=== PATIENT | female | born 1930 | race Caucasian/White ===

== ENCOUNTER → 2016-11-21 | Outpatient (CLI) | payer MEDICARE, OTHER ==
[2014-03-19 11:06] VITALS: BP 156/72
[~2016-11-21] MED LIST: ACET325T21 PO; ALPR0.254 PO; AMOX500T PO; ANTI14DR4 AS; BISA10SU2 RC; BISO5TAB2 PO; CELEXA PO; CYCL-331 PO; DOCU-109 PO; DONE10TA61 PO; HYDR-2762 PO; IBUP400T18 PO; LISI10TA2 PO; MAALOX PO; MAGN2400 PO; MEMA10TA PO; METH-37 PO; PREG50CA PO; PROM25VI5 IM; RIVA1.5C2 PO; RIVA3CAP2 PO; TYLENOL ARTHRITIS PO
--- NOTE | 2016-11-21 15:55 | RAD ---
CT head Indication: Headache for one week Technique: CT head without IV contrast Comparison: Previous CT head from 03/15/2014 Findings: Mild diffuse brain atrophy. No pathologic extra-axial or intra-axial fluid collection. No focal loss of cristina-white differentiation. No mass effect. The ventricles and basilar cisterns are within normal limits. No acute intracranial bleed. Visualized orbits within normal limits. No calvarial lesions. The visualized paranasal sinuses and mastoid air cells are clear. Bilateral periventricular and deep white matter low attenuation noted. Impression: 1. No acute intracranial process on this noncontrast study. 2. White matter changes secondary to chronic microvascular ischemic disease. PQRS Compliance Statement: One or more of the following individualized dose reduction techniques were utilized for this examination: 1. Automated exposure control 2. Adjustment of the mA and/or kV according to patient size 3. Use of iterative reconstruction technique
== END | disposition home or self-care (01) ==
LOC: CT 13:09
PROVIDERS: ATTEND Internal Medicine
DX: G31.89 Other specified degenerative diseases of nervous system (principal); R51 Headache
CPT/HCPCS: 70450

== ENCOUNTER → 2017-03-28 | Outpatient (CLI) | payer MEDICARE, OTHER ==
[2014-03-19 11:06] VITALS: BP 156/72
--- NOTE | 2017-03-28 14:00 | RAD ---
Lumbar spine, 5 views, 03/28/2017: History: Low back pain Comparison is made to a study from 03/28/2009. There is a mild lumbar scoliosis. The lumbar vertebral heights are well-maintained. There is a moderate grade 2 spondylolisthesis which as worsened since the previous study. A minimal grade 1 spondylolisthesis has developed at L4-5. There is mild disc space narrowing at L5-S1. There are mild scattered marginal spurs. Extensive facet joint arthropathy is noted in the lower lumbar spine. There is a moderate vertebral compression deformity at T11 with associated vertebroplasty change. This was not present on the 2009 exam. IMPRESSION: 1. Extensive facet joint arthropathy in the lower lumbar spine with a worsening grade 2 spondylolisthesis at L5-S1 and a mild grade 1 spondylolisthesis at L4-5. 2. Old T11 vertebral compression fracture with vertebroplasty change.
== END | disposition home or self-care (01) ==
LOC: DXRAD 13:26
PROVIDERS: ATTEND Internal Medicine
DX: M43.16 Spondylolisthesis, lumbar region (principal); I11.0 Hypertensive heart disease with heart failure; I50.22 Chronic systolic (congestive) heart failure
CPT/HCPCS: 72110

== ENCOUNTER → 2017-04-21 | Outpatient (CLI) | payer MEDICARE, OTHER ==
[2014-03-19 11:06] VITALS: BP 156/72
[~2017-04-21] MED LIST changes: +BUPIVACAINE MPF 0.5% 30 ML VIAL. ONE
== END | disposition home or self-care (01) ==
LOC: SURG 08:49
PROVIDERS: ATTEND Anesthesiology Pain Medicine
DX: M79.1 Myalgia (principal); M19.90 Unspecified osteoarthritis, unspecified site; F41.8 Other specified anxiety disorders; Z96.651 Presence of right artificial knee joint; Z98.49 Cataract extraction status, unspecified eye; K21.9 Gastro-esophageal reflux disease without esophagitis; I11.0 Hypertensive heart disease with heart failure; I50.9 Heart failure, unspecified
CPT/HCPCS: 20553; 99205; J3490

== ENCOUNTER → 2017-05-16 | Outpatient (CLI) | payer MEDICARE, OTHER ==
[2014-03-19 11:06] VITALS: BP 156/72
[~2017-05-16] MED LIST changes: -BUPIVACAINE MPF 0.5% 30 ML VIAL. ONE
== END | disposition home or self-care (01) ==
LOC: SURG 14:00
PROVIDERS: ATTEND Anesthesiology
DX: M54.6 Pain in thoracic spine (principal); I10 Essential (primary) hypertension; K21.9 Gastro-esophageal reflux disease without esophagitis
CPT/HCPCS: 99214

== ENCOUNTER → 2017-08-08 | Outpatient (CLI) | payer MEDICARE, OTHER ==
[2014-03-19 11:06] VITALS: BP 156/72
[~2017-08-08] MED LIST changes: +BUPIVACAINE MPF 0.25% 10 ML VIAL. ONE; +methylPREDNISolone ACETATE 40 MG/ML VIAL. ONE
== END | disposition home or self-care (01) ==
LOC: SURG 13:07
PROVIDERS: ATTEND Anesthesiology
DX: M79.1 Myalgia (principal); Z87.39 Personal history of other diseases of the musculoskeletal system and connective tissue
CPT/HCPCS: 20553; J1030; J3490